=== PATIENT | female | born 1940 | race Two or more races ===

== ENCOUNTER 2021-11-05 10:38 | Inpatient (IN) | payer OTHER ==
[~2021-11-05] VITALS: Ht 152.4 cm; Wt 54.4 kg
[2021-11-05] MEDS ORDERED: COZAAR25 MG PO (11:11)
[2021-11-05] MEDS ORDERED: ECOTRIN81 MG PO (11:12)
--- NOTE | 2021-11-05 11:12 | NUR ---
SE RECIBE PACIENTE ALERTA, ORIENTADA X 3 ESFERAS REFIRE TENER PROBLREMAS ANO , HEMOROIDES Y MASA ENTRE RECTO Y SIGMOIDE. PTE DE DR.NICOLAS DANGELO REFIERE PARA ADMISION. SE ESTIMAN S/V SE UBICA EN AREA DE OBSERVACION SE PRESENTA A DR. ARIAS.
--- NOTE | 2021-11-05 12:44 | NUR ---
SE REALIZAN MUESTRAS DE ANA BAJO MEDIDAS ASEPTICAS, SE REALIZA ADMINISTRACION DE MEDICAMENTOS Y SE ORIENTA A PACIENTE SOBRE USO Y EFECTOS. PACIENTE SE MANTIENE EN OBSERVACION.
--- NOTE | 2021-11-05 16:03 | NUR ---
PTE ALERTA Y ORIENTADA X 3 ESFERAS EN BO CON BARANDAS ELEVADAS EN COMPANIA DE FAMILIAR,NO REFIERE DOLOR AL MOMENTO,AREA DE VENOPUNCION PATENTE Y VIRY DE EDEMA CON FLUIDOS DE MANETENIMIENTO BAJANDO SIN DIFICULTAD,PENDIENTE A EVALUACION DE DR Augustus DANGELO.
[2021-11-07] MEDS ORDERED: OXYCODONE HCL5 MG PO (13:42)
== END 2021-11-07 14:02 | disposition home or self-care (01) | DRG 348 ==
LOC: ER 10:38 → SEC-K 16:34 → O/R 16:34 → SURG 11-06 14:12
PROVIDERS: ADMIT Surgery; ATTEND Surgery
PROC: 06BY0ZC Excision of Hemorrhoidal Plexus, Open Approach (ICD-10-PCS; principal; 2021-11-06 06:15)
PROC: BW24ZZZ Computerized Tomography (CT Scan) of Chest and Abdomen (ICD-10-PCS; 2021-11-07)
PROC: BW21YZZ Computerized Tomography (CT Scan) of Abdomen and Pelvis using Other Contrast (ICD-10-PCS; 2021-11-07)
DX: K64.5 Perianal venous thrombosis (principal); K62.5 Hemorrhage of anus and rectum; C19 Malignant neoplasm of rectosigmoid junction; K62.89 Other specified diseases of anus and rectum; Z20.822 Contact with and (suspected) exposure to COVID-19; I11.9 Hypertensive heart disease without heart failure

== ENCOUNTER 2021-11-20 08:52 | Day surgery (SDC) | payer OTHER ==
[~2021-11-20] VITALS: Ht 152.4 cm; Wt 54.4 kg
[~2021-11-20 08:52] MED LIST: COZAAR25 MG PO; ECOTRIN81 MG PO; OXYCODONE HCL5 MG PO
[2021-11-20] MEDS ORDERED: D3 + K2 DOTS 11 EACH PO (09:05)
[2021-11-20] MEDS ORDERED: [UNRECOGNIZED DRUG - OTHER] PO (09:05)
[2021-11-20] MEDS ORDERED: CIDAFLEX TABLE1 EACH PO (09:05)
[2021-11-20] MEDS ORDERED: ULTRACET PO (12:14)
== END 2021-11-20 15:15 | disposition home or self-care (01) ==
LOC: CIR.AMB 08:52
PROVIDERS: ATTEND Surgery
DX: C19 Malignant neoplasm of rectosigmoid junction (principal); R59.0 Localized enlarged lymph nodes; K62.89 Other specified diseases of anus and rectum; Z20.822 Contact with and (suspected) exposure to COVID-19; I10 Essential (primary) hypertension
CPT/HCPCS: 36561; C1788

== ENCOUNTER 2022-03-17 09:45 | Inpatient (IN) | payer OTHER ==
[~2022-03-17 09:45] MED LIST changes: +CIDAFLEX TABLE1 EACH PO; +D3 + K2 DOTS 11 EACH PO; +ULTRACET PO; +[UNRECOGNIZED DRUG - OTHER] PO
[2022-03-26] MEDS ORDERED: INTEGRA PLUS C1 EACH PO (10:31)
== END 2022-03-26 13:40 | disposition home or self-care (01) | DRG 330 ==
LOC: SURH 03-23 05:50 → O/R 03-23 05:50 → SURH 03-23 07:00
PROVIDERS: ADMIT Surgery; ATTEND Surgery
PROC: 07BC4ZZ Excision of Pelvis Lymphatic, Percutaneous Endoscopic Approach (ICD-10-PCS; 2022-03-23)
PROC: 0DTP4ZZ Resection of Rectum, Percutaneous Endoscopic Approach (ICD-10-PCS; 2022-03-23)
PROC: 0DTN4ZZ Resection of Sigmoid Colon, Percutaneous Endoscopic Approach (ICD-10-PCS; 2022-03-23)
PROC: 0DTQ4ZZ Resection of Anus, Percutaneous Endoscopic Approach (ICD-10-PCS; 2022-03-23)
PROC: 0DBM4ZZ Excision of Descending Colon, Percutaneous Endoscopic Approach (ICD-10-PCS; principal; 2022-03-23 07:00)
DX: C20 Malignant neoplasm of rectum (principal); K62.5 Hemorrhage of anus and rectum; R59.0 Localized enlarged lymph nodes; K64.5 Perianal venous thrombosis; I11.9 Hypertensive heart disease without heart failure; Z20.822 Contact with and (suspected) exposure to COVID-19